=== PATIENT | female | born 1970 | race Caucasian/White ===

== ENCOUNTER → 2016-07-04 | Outpatient (REF) ==
[~2016-07-04] MED LIST: BACTRIM DS 8001 TAB PO; CLEOCIN HCL300 MG PO
== END ==
LOC: WSOH 13:06
DX: Z02.89 Encounter for other administrative examinations (principal)

== ENCOUNTER 2016-07-11 14:00 | Outpatient (RCR) | payer OTHER | END 2016-10-11 08:56 | LOC: WSOH 14:00 | DX: S70.01XD Contusion of right hip, subsequent encounter (principal); S33.6XXD Sprain of sacroiliac joint, subsequent encounter; W18.2XXA Fall in (into) shower or empty bathtub, initial encounter; Y99.0 Civilian activity done for income or pay ==

== ENCOUNTER → 2016-07-11 | Outpatient (REF) | LOC: WSOH 13:57 | DX: Z02.89 Encounter for other administrative examinations (principal) ==

== ENCOUNTER 2021-02-24 10:08 | Emergency (ER) | payer OTHER ==
[~2021-02-24] VITALS: Ht 165.1 cm; Wt 114.5 kg
[2021-02-24 10:29] VITALS: TEMP 98.2
[2021-02-24 11:12] LABS: BASO # 0.1 (0.0-0.2); BASO % 0.6 % (0.0-2.0); EOS # 0.2 (0.0-0.7); EOS % 2.1 % (0-4.0); GRAN # 7.7 (1.4-6.5); GRAN % 70.7 % (42.2-75.2); HEMATOCRIT 47.7 % (37.0-47.0); HEMOGLOBIN 15.9 g/dl (12.5-16.0); LYMPH # 2.2 (1.2-3.4); LYMPH % 20.1 % (20.0-51.0); MEAN CELL VOLUME 89 fl (80.0-100.0); MEAN CORPUSCULAR HEMOGLOBIN 30 pg (27.0-31.0); MEAN CORPUSCULAR HGB CONC 33 g/dl (33.0-37.0); MONO # 0.7 (0.1-0.6); PLATELET COUNT 269 K/mm3 (130-400); RED BLOOD COUNT 5.36 M/mm3 (4.10-5.30); REDCELL DISTRIBUTION WIDTH-CV 14.6 % (11.5-14.5)
[2021-02-24 11:27] LABS: BILIRUBIN,TOTAL 0.5 mg/dL (0.0-1.0); CALCIUM 10.1 mg/dL (8.4-10.2); CREATININE, serum 0.66 (0.52-1.25); POTASSIUM 4.3 mmol/L (3.4-5.0); TOTAL PROTEIN 8.3 gm/dL (6.4-8.2)
[2021-02-24 18:33] VITALS: BP 140/91; PULSE 68
== END 2021-02-24 12:21 | disposition home or self-care (01) ==
LOC: COL.ER 10:08
PROVIDERS: Family Medicine
DX: R13.10 Dysphagia, unspecified (principal); I10 Essential (primary) hypertension; F17.210 Nicotine dependence, cigarettes, uncomplicated

== ENCOUNTER → 2023-02-16 | Outpatient (CLI) | payer OTHER ==
[2023-02-16 17:09] LABS: BASO # 0.1 K/mm3 (0.0-0.2); BASO % 0.6 % (0.0-2.0); EOS # 0.2 K/mm3 (0.0-0.7); EOS % 1.9 % (0.0-4.0); GRAN # 5.6 K/mm3 (1.4-6.5); GRAN % 65.7 % (42.2-75.2); HEMATOCRIT 44.1 % (37.0-47.0); HEMOGLOBIN 14.2 g/dl (12.5-16.0); LYMPH % 23.1 % (20.0-51.0); MEAN CELL VOLUME 88 fl (80.0-100.0); MEAN CORPUSCULAR HEMOGLOBIN 28 pg (27-31); MEAN CORPUSCULAR HGB CONC 32 g/dl (33.0-37.0); MEAN PLATELET VOLUME 10.4 fl (7.4-10.4); MONO # 0.7 K/mm3 (0.1-0.6); MONO % 8.3 % (1.7-9.3); PLATELET COUNT 280 K/mm3 (130-400); RED BLOOD COUNT 5.01 M/mm3 (4.10-5.30); REDCELL DISTRIBUTION WIDTH-CV 14.7 % (11.5-14.5)
[2023-02-16 17:27] LABS: ERYTHROCYTE SEDIMENTATION RATE 4 mm/hr (0-30)
[2023-02-17 00:46] LABS: LYME DISEASE ANTIBODIES Negative (Negative)
== END ==
LOC: COL.LAB 16:16
PROVIDERS: Orthopaedic Surgery
DX: Z01.812 Encounter for preprocedural laboratory examination (principal); M25.461 Effusion, right knee